=== PATIENT | female | born 1965 | race Two or more races ===

== ENCOUNTER 2017-04-29 08:14 | Emergency (ER) | payer BC ==
[~2017-04-29] VITALS: Ht 157.5 cm; Wt 83.0 kg
[2017-04-29 08:25] VITALS: BP 114/81
[2017-04-29] MEDS ORDERED: methylPREDNISolone SOD SUCC 125 MG/2 ML VL IM ONE (09:15)
[2017-04-29] MEDS ORDERED: cefTRIAXone SOD 1,000 MG VL IM ONE (09:15)
== END 2017-04-29 09:42 | disposition home or self-care (01) ==
LOC: ER 08:14
DX: J03.90 Acute tonsillitis, unspecified (principal); E11.9 Type 2 diabetes mellitus without complications
CPT/HCPCS: 96372; 99284; J0696; J2930

== ENCOUNTER 2017-07-15 13:29 | Emergency (ER) | payer BC ==
[~2017-07-15] VITALS: Ht 157.5 cm; Wt 84.4 kg
[2017-07-15 13:44] VITALS: BP 137/89
== END 2017-07-15 15:39 | disposition home or self-care (01) ==
LOC: ER 13:29
DX: N39.0 Urinary tract infection, site not specified (principal); E11.9 Type 2 diabetes mellitus without complications